=== PATIENT | male | born 1975 | race Two or more races ===

== ENCOUNTER 2016-12-13 17:10 | Emergency (ER) | payer BC ==
[2016-12-13] MEDS ORDERED: Albuterol 2.5 MG/3 ML NEB.SOL* (0.083%) INH ONE (19:07)
[2016-12-13] MEDS ORDERED: predniSONE TAB* 20 MG PO ONE (19:08)
[2016-12-13] MEDS ORDERED: Azithromycin TAB* 250 MG PO ONE (19:08)
--- NOTE | 2016-12-13 19:36 | RAD ---
HISTORY: Cough, wheezing COMPARISONS: None VIEWS: 2: Frontal dual-energy and lateral views of the chest. FINDINGS: CARDIOMEDIASTINAL SILHOUETTE: The cardiomediastinal silhouette is normal. CORNEL: The cornel are normal. PLEURA: The costophrenic angles are sharp. No pleural abnormalities are noted. LUNG PARENCHYMA: The lungs are clear. ABDOMEN: The upper abdomen is clear. There is no subphrenic gas. BONES AND SOFT TISSUES: No bone or soft tissue abnormalities are noted. OTHER: None. IMPRESSION: NO ACTIVE CARDIOPULMONARY DISEASE.
[2016-12-13 20:04] VITALS: BP 120/86
--- NOTE | 2016-12-14 00:59 | UC ---
madison Judd Timothy, scribed for Letty Chandler MD on 12/13/16 at 1912 . Shortness of Breath HPI - HPI Summary HPI Summary: Humberto Nguyen is a 41 yo male presenting to [facility] with nasal congestion, itchy eyes with yellow discharge, and increased difficulty breathing since 12/12/16 pm. He states it feels like he has to catch his breath after talking for a few minutes. He states he also has a non-productive cough with metallic taste. He is not in any current pain. His MHx includes left radiofrequency ablation 10/01, right 10/29 for lumbar spine pain, seasonal allergies, and he is a pain clinic Pt. - History of Current Complaint Chief Complaint: UCGeneralIllness Stated Complaint: DIFFICULTY BREATHING Time Seen by Provider: 12/13/16 19:03 Hx Obtained From: Patient Onset/Duration: Sudden Onset, Lasting Hours, Still Present Timing: Constant Current Severity: Moderate Dyspnea At: Exertion Aggrevating Factors: Allergens Alleviating Factors: Nothing Associated Signs & Symptoms: Positive: Cough (Nonproductive), Nasal Congestion, Other - eye itchiness with yellow discharge - Allergy/Home Medications Allergies/Adverse Reactions: Allergies Allergy/AdvReac Type Severity Reaction Status Date / Time No Known Allergies Allergy Verified 12/13/16 19:04 PMH/Surg Hx/FS Hx/Imm Hx Previously Healthy: No - lumbar spine pain Endocrine History Of: Denies: Diabetes Cardiovascular History Of: Denies: Cardiac Disorders, Hypertension, Pacemaker/ICD Respiratory History Of: Denies: COPD, Asthma GI/ History Of: Denies: Renal Disease - Surgical History Surgical History: Yes Surgery Procedure, Year, and Place: LEFT KNEE ACL RECON - Family History Known Family History: Positive: Other - asthma - Social History Lives: With Family Alcohol Use: None Substance Use Type: None Smoking Status (MU): Never Smoked Tobacco Have You Smoked in the Last Year: No Review of Systems Constitutional: Negative Skin: Negative Eyes: Drainage - yellow, Other - eye itchiness ENT: Nasal Discharge Respiratory: Shortness Of Breath, Cough Cardiovascular: Negative Gastrointestinal: Negative Genitourinary: Negative Motor: Negative Neurovascular: Negative Musculoskeletal: Negative Neurological: Negative Psychological: Negative All Other Systems Reviewed And Are Negative: Yes Physical Exam Triage Information Reviewed: Yes Appearance: No Pain Distress, Well-Nourished, Ill-Appearing Vital Signs: Initial Vital Signs Temp 97.8 F 12/13/16 18:58 Pulse 71 12/13/16 18:58 Resp 16 12/13/16 18:58 BP 145/101 12/13/16 18:58 Pulse Ox 100 12/13/16 18:58 elevated BP noted Vital Signs Reviewed: Yes Eyes: Positive: Conjunctiva Clear, Discharge - yellow ENT: Positive: Hearing grossly normal. Negative: Muffled/hoarse voice Neck: Positive: Supple, Nontender Respiratory: Positive: No respiratory distress, No accessory muscle use, Wheezing - bilat exp Cardiovascular: Positive: RRR, No Murmur, Pulses Normal, Brisk Capillary Refill Musculoskeletal: Positive: Strength Intact, ROM Intact Neurological: Positive: Alert, Muscle Tone Normal Psychological Exam: Normal Psychological: Positive: Age Appropriate Behavior Skin Exam: Normal Skin: Negative: rashes Diagnostics - Radiology CXR Xray Interpretation: No Acute Changes - IMPRESSION: NO ACTIVE CARDIOPULMONARY DISEASE. Radiology Interpretation Completed By: Radiologist Re-Evaluation - Re-Evaluation First Eval Re-Evaluation Time: 20:02 Change: Improved Comment: Improved after neb and prednisone, no wheezes. Discussed imaging study results with Pt. Pt is agreeable to current course of Tx and will be discharged. Shortness of Breath Dx - Course Course Of Treatment: Humberto Nguyen is a 41 yo male presenting to [facility] with SOB, cough, yellow discharge from his eyes, wheezing, and nasal congestion since last night. His CXR suggested no active cardiopulmonary disease. In urgent care he receiveed prednisone, albuterol, and azithromycin to ameliorate his SOB. After clinical examination and review of his imaging studies, he will be discharged home with asthmatic bronchitis and appropriate instructions. - Differential Dx/Diagnosis Differential Diagnosis/HQI/PQRI: Asthma, Bronchitis, Pneumonia Provider Diagnoses: asthmatic bronchitis Discharge - Discharge Plan Condition: Stable Disposition: HOME Prescriptions: Albuterol HFA INHALER* [Ventolin HFA Inhaler*] 2 puff INH Q4H PRN #1 mdi PRN Reason: Cough Azithromycin TAB* [Zithromax TAB (Z-PROSPER) 250 mg #6 tabs] 250 mg PO DAILY #4 tab Tobramycin 0.3% OPHTH.JAVY* 2 drop BOTH EYES Q4H #1 btl predniSONE TAB* [Deltasone TAB*] 40 mg PO DAILY #10 tab Patient Education Materials: Bronchospasm (ED), Acute Bronchitis (ED) Referrals: Hernandez Garner MD [Primary Care Provider] - 2 Days Additional Instructions: Please follow up with your primary care physician regarding your visit to urgent care today. Return to urgent care or the emergency department with any new or recurring symptoms. The documentation as recorded by the madison walker Timothy accurately reflects the service I personally performed and the decisions made by , Letty Chandler MD.
== END 2016-12-13 20:16 | disposition home or self-care (01) ==
LOC: UCEAST 17:10
DX: J45.909 Unspecified asthma, uncomplicated (principal)
CPT/HCPCS: 71020; 99202; A9270-GY; G0463; J7512

== ENCOUNTER 2017-05-10 07:28 | Emergency (ER) | payer BC ==
[2017-05-10 07:47] VITALS: BP 118/74
--- NOTE | 2017-05-10 14:32 | UC ---
Atilio Judd Angela, scribed for Vidya Rasmussen MD on 05/10/17 at 0829 . General HPI - HPI Summary HPI Summary: This pt is a 42 y/o male presenting to [facility] c/o sore throat upon waking up today. He additionally reports a headache. Pt's tested positive for strep throat 2 days ago. No rash, no cough / sob / cp. + tired. Pt works as an erp implementation consultant. - History of Current Complaint Chief Complaint: UCGeneralIllness Stated Complaint: SORE THROAT Time Seen by Provider: 05/10/17 07:58 Hx Obtained From: Patient Onset/Duration: Lasting Hours Associated Signs & Symptoms: Positive: Headache. Negative: Cough, Fever - Allergy/Home Medications Allergies/Adverse Reactions: Allergies Allergy/AdvReac Type Severity Reaction Status Date / Time No Known Allergies Allergy Verified 05/10/17 07:47 PMH/Surg Hx/FS Hx/Imm Hx Previously Healthy: Yes Other Endocrine History: DENIES: diabetes Other Cardiovascular History: DENIES: HTN - Surgical History Surgical History: Yes Surgery Procedure, Year, and Place: LEFT KNEE ACL RECON - Family History Known Family History: Positive: Other - asthma - Social History Occupation: Employed Full-time - erp implementation consultant. Alcohol Use: None Substance Use Type: None Smoking Status (MU): Former Smoker Have You Smoked in the Last Year: No Review of Systems Constitutional: Negative Skin: Negative Eyes: Negative ENT: Sore Throat Motor: Negative Neurovascular: Negative Neurological: Headache Is Patient Immunocompromised?: No All Other Systems Reviewed And Are Negative: Yes Physical Exam Triage Information Reviewed: Yes Appearance: Well-Nourished - looks tired but NAD. Vital Signs: Initial Vital Signs Temp 97.5 F 05/10/17 07:43 Pulse 59 05/10/17 07:43 Resp 16 05/10/17 07:43 BP 118/74 05/10/17 07:43 Pulse Ox 100 05/10/17 07:43 Vital Signs Reviewed: Yes Eye Exam: Normal ENT: Positive: TMs normal - a little rtx'd but ok, Other: - posterior pharynx is erythematous. Uvula is a little edematous. Uvula is midline. Airway is clear. No sores are appreciated. Neck: Positive: Supple, Nontender, Other: - Right adenopathy Respiratory Exam: Normal Respiratory: Positive: Chest non-tender, Lungs clear, Normal breath sounds, No respiratory distress Cardiovascular Exam: Normal Cardiovascular: Positive: RRR, No Murmur, Pulses Normal, Brisk Capillary Refill , Other: - heart rate correlates with right radial pulse Abdominal Exam: Normal Abdomen Description: Positive: Nontender, No Organomegaly, Soft Bowel Sounds: Positive: Present Musculoskeletal Exam: Normal Musculoskeletal: Positive: Strength Intact Neurological Exam: Normal - nonfocal, grossly intact Psychological Exam: Normal - conversing easily and appropriately Skin Exam: Normal - no visible or reported rash Course/Dx - Course Course Of Treatment: No new problems in CCC. Reviewed Strep precautions. Rx - augmentin. F/u PCP per routine. Seek medical care for worse or new problems. - Differential Dx - Multi-Symptom Provider Diagnoses: strep pharyngitis Discharge - Discharge Plan Condition: Stable Disposition: HOME Prescriptions: Amoxicillin/Clavulanate TAB* [Augmentin TAB 875*] 875 mg PO BID #20 tab Patient Education Materials: Strep Throat (ED) Forms: *Work Release Referrals: Hernandez Garner MD [Primary Care Provider] - The documentation as recorded by the Atilio walker Angela accurately reflects the service I personally performed and the decisions made by me, Vidya Rasmussen MD.
== END 2017-05-10 08:50 | disposition home or self-care (01) ==
LOC: UCEAST 07:28
DX: J02.0 Streptococcal pharyngitis (principal); Z87.891 Personal history of nicotine dependence
CPT/HCPCS: 87651; 99212; G0463

== ENCOUNTER 2017-06-06 07:34 | Emergency (ER) | payer BC ==
[2017-06-06 07:50] VITALS: BP 112/73
--- NOTE | 2017-06-06 08:31 | UC ---
Throat Pain/Nasal Chase HPI - HPI Summary HPI Summary: Patient presents with an unremarkable history. He presents with complaints of one day onset sore throat. He states he felt find yesterday, and woke up with throat pain. He denies fever, chills, nausea, vomiting or diarrhea, recent travel or know ill contacts. He is able to speak clearly and handle his own secretions. Denies any chest pain, cough, or dyspnea. - History of Current Complaint Chief Complaint: UCGeneralIllness Stated Complaint: SORE THROAT Time Seen by Provider: 06/06/17 07:51 Hx Obtained From: Patient Onset/Duration: Sudden Onset, Lasting Hours Severity: Moderate Cough: None Associated Signs & Symptoms: Positive: Negative - Epiglottits Risk Factors Epiglottis Risk Factors: Negative - Allergies/Home Medications Allergies/Adverse Reactions: Allergies Allergy/AdvReac Type Severity Reaction Status Date / Time No Known Allergies Allergy Verified 06/06/17 07:47 PMH/Surg Hx/FS Hx/Imm Hx Previously Healthy: Yes - Surgical History Surgical History: Yes Surgery Procedure, Year, and Place: LEFT KNEE ACL RECON - Family History Known Family History: Positive: Other - asthm - Social History Occupation: Employed Part-time Lives: With Family Alcohol Use: None Substance Use Type: None Smoking Status (MU): Former Smoker Have You Smoked in the Last Year: No Review of Systems Constitutional: Other - body aches Skin: Negative Eyes: Negative ENT: Sore Throat Respiratory: Negative Cardiovascular: Negative Gastrointestinal: Negative Genitourinary: Negative Motor: Negative Neurovascular: Negative Musculoskeletal: Negative Neurological: Negative Psychological: Negative All Other Systems Reviewed And Are Negative: Yes Physical Exam Triage Information Reviewed: Yes Appearance: Well-Appearing Vital Signs: Initial Vital Signs Temp 98.1 F 06/06/17 07:48 Pulse 86 06/06/17 07:48 Resp 16 06/06/17 07:48 BP 112/73 06/06/17 07:48 Pulse Ox 99 06/06/17 07:48 Vital Signs Reviewed: Yes Eye Exam: Normal ENT: Positive: Pharyngeal erythema Dental Exam: Normal Neck exam: Normal Neck: Positive: 1 Respiratory Exam: Normal Cardiovascular Exam: Normal Abdominal Exam: Normal Musculoskeletal Exam: Normal Neurological Exam: Normal Psychological Exam: Normal Skin Exam: Normal Throat Pain/Nasal Course/Dx - Course Course Of Treatment: Patient presents with one day onset throat pain, rapid strep was negative. He was hemodynamically stable, normal vital signs, and afebrile. He was RX penvk 500 mg po qid x 10 days, out of work today and may return tomorrow. - Differential Dx/Diagnosis Differential Diagnosis/HQI/PQRI: Other - strep throat Provider Diagnoses: strep throat Discharge - Discharge Plan Condition: Stable Disposition: HOME Prescriptions: Penicillin VK TAB* [Penicillin VK 250 mg Tab*] 500 mg PO QID #40 tab Patient Education Materials: Strep Throat (ED) Forms: *Work Release Referrals: Hernandez Garner MD [Primary Care Provider] -
== END 2017-06-06 08:40 | disposition home or self-care (01) ==
LOC: UCEAST 07:34
DX: J02.0 Streptococcal pharyngitis (principal); Z87.891 Personal history of nicotine dependence
CPT/HCPCS: 87651; 99212; G0463

== ENCOUNTER 2017-06-30 17:43 | Emergency (ER) | payer BC ==
[2017-06-30 18:00] VITALS: BP 136/80
--- NOTE | 2017-06-30 19:12 | UC ---
Throat Pain/Nasal Chase HPI - HPI Summary HPI Summary: Patient presents with complaints of sore throat for the third time. He states he as been seen two times prior with same complaints and has been treated with Amoxicillin, and then Augmentin. He states that he feels better when he is taking the medication, but as soon as he completes it the symptoms come back. He complains of painful red sore throat. He is able to eat, drink, speak, and handle his own secretions. He denies fever, chills, chest pain, abdominal pain, nausea, vomiting or diarrhea. - History of Current Complaint Chief Complaint: UCGeneralIllness Stated Complaint: THROAT PAIN Time Seen by Provider: 06/30/17 18:43 Hx Obtained From: Patient Onset/Duration: Gradual Onset, Lasting Days Severity: Moderate Pain Intensity: 7 Pain Scale Used: 0-10 Numeric Cough: None Associated Signs & Symptoms: Positive: Negative - Allergies/Home Medications Allergies/Adverse Reactions: Allergies Allergy/AdvReac Type Severity Reaction Status Date / Time No Known Allergies Allergy Verified 06/06/17 07:47 Home Medications: Home Medications Ibuprofen [Ibuprofen 200 MG] 400 mg PO 06/30/17 [History] PMH/Surg Hx/FS Hx/Imm Hx Previously Healthy: Yes - Surgical History Surgical History: Yes Surgery Procedure, Year, and Place: LEFT KNEE ACL RECON - Family History Known Family History: Positive: Other - asthm - Social History Alcohol Use: None Substance Use Type: None Smoking Status (MU): Former Smoker Have You Smoked in the Last Year: No Review of Systems Constitutional: Negative Skin: Negative Eyes: Negative ENT: Sore Throat Respiratory: Negative Cardiovascular: Negative Gastrointestinal: Negative Genitourinary: Negative Motor: Negative Neurovascular: Negative Musculoskeletal: Negative Neurological: Negative Psychological: Negative All Other Systems Reviewed And Are Negative: Yes Physical Exam Triage Information Reviewed: Yes Appearance: Well-Appearing Vital Signs: Initial Vital Signs Temp 97.9 F 06/30/17 17:55 Pulse 72 06/30/17 17:55 Resp 18 06/30/17 17:55 BP 136/80 06/30/17 17:55 Pulse Ox 99 06/30/17 17:55 Eye Exam: Normal Eyes: Positive: Conjunctiva Clear ENT: Positive: Pharyngeal erythema Dental Exam: Normal Neck exam: Normal Neck: Positive: 1 Respiratory Exam: Normal Respiratory: Positive: Chest non-tender, Lungs clear, Normal breath sounds, No respiratory distress, No accessory muscle use Cardiovascular Exam: Normal Cardiovascular: Positive: No Murmur, Pulses Normal Abdominal Exam: Normal Bowel Sounds: Positive: Present Musculoskeletal Exam: Normal Skin Exam: Normal Throat Pain/Nasal Course/Dx - Course Course Of Treatment: Patient presents with recurrent sore throat. Throat cultures were obtained to perhaps isolate the organism. He will in the interim be treated with Biaxin 500 mg by mouth twice daily for 10 days. He was discharged home in stable condition, with normal vital signs and afebrile. He was told to follow up with his PCP if his symtpoms do not resolve. - Differential Dx/Diagnosis Differential Diagnosis/HQI/PQRI: Pharyngitis Provider Diagnoses: pharyngitis Discharge - Discharge Plan Condition: Stable Disposition: HOME Prescriptions: Clarithromycin TAB* [Biaxin 500 MG TAB*] 500 mg PO BID #20 tab Patient Education Materials: Pharyngitis (ED) Referrals: Hernandez Garner MD [Primary Care Provider] -
--- NOTE | 2017-07-02 12:55 | UC ---
Progress - Progress Note Progress Note: (+) gas -- Finish biaxin
== END 2017-06-30 19:00 | disposition home or self-care (01) ==
LOC: UCEAST 17:43
DX: J02.9 Acute pharyngitis, unspecified (principal); Z87.891 Personal history of nicotine dependence
CPT/HCPCS: 87070; 87077; 99212; G0463

== ENCOUNTER 2018-05-16 18:46 | Emergency (ER) | payer BC ==
[2018-05-16 18:59] VITALS: BP 129/85
--- NOTE | 2018-05-16 19:01 | UC ---
Abdominal Pain Male HPI - HPI Summary HPI Summary: pt states tuesday evening he began to have stomach cramps and abd pain. pt has returned from [place] 04/22, 3 weeks ago. - History of Current Complaint Chief Complaint: UCAbdominalPain Stated Complaint: ABDOMINAL PAIN Time Seen by Provider: 05/16/18 19:01 Pain Intensity: 9 - Allergies/Home Medications Allergies/Adverse Reactions: Allergies Allergy/AdvReac Type Severity Reaction Status Date / Time No Known Allergies Allergy Verified 05/16/18 18:59 PMH/Surg Hx/FS Hx/Imm Hx - Surgical History Surgical History: Yes Surgery Procedure, Year, and Place: LEFT KNEE ACL RECON - Family History Known Family History: Positive: Other - asthm - Social History Alcohol Use: None Substance Use Type: None Smoking Status (MU): Former Smoker Have You Smoked in the Last Year: No Physical Exam Vital Signs: Initial Vital Signs Temp 98.0 F 05/16/18 18:55 Pulse 70 05/16/18 18:55 Resp 18 05/16/18 18:55 BP 129/85 05/16/18 18:55 Pulse Ox 97 05/16/18 18:55 Discharge - Sign-Out/Discharge Documenting (check all that apply): Patient Departure All imaging exams completed and their final reports reviewed: No Studies - Discharge Plan Condition: Stable Disposition: HOME Referrals: Hernandez Garner MD [Primary Care Provider] - - Billing Disposition and Condition Condition: STABLE Disposition: Home
[2018-05-16] MEDS ORDERED: Famotidine IV* 10 MG/ML 2 ML (20 mg) IV SLOW PU ONE (19:13)
[2018-05-16] MEDS ORDERED: Ondansetron INJ* 2 MG/ML VIAL IV ONE (19:13)
[2018-05-16] MEDS ORDERED: NS 0.9% 1000 ML* 1,000 ML BOLUS ONE (19:13)
--- NOTE | 2018-05-16 20:16 | UC ---
Abdominal Pain Male HPI - HPI Summary HPI Summary: The patient is a 43-year-old male with the onset of abdominal pain yesterday morning. The pain is diffuse. Is nonradiating. Attempts to eat he has severe epigastric pain. The pain doubles him over and he has to lie down during these episodes. Has had no fever or chills's. He is anorexic. He has been able to take clear liquids. His pain is worse with movement. He has To walk hunched over. He has had no problems urinating. Yesterday he had 8 episodes of diarrhea. Today he has had 3 episodes of diarrhea. He recently spent a month in [facility]. He returned to the [facility] about 3 weeks ago. He thinks he is last 2- 3 pounds since the onset of his symptoms. He has a remote history of hepatitis, possibly hepatitis B he is not sure. He has a history of typhoid fever. - History of Current Complaint Chief Complaint: UCAbdominalPain Stated Complaint: ABDOMINAL PAIN Time Seen by Provider: 05/16/18 19:01 Hx Obtained From: Patient Onset/Duration: Gradual Onset, Lasting Days Timing: Constant Severity Initially: Severe Severity Currently: Severe Pain Intensity: 9 Pain Scale Used: 0-10 Numeric Location: Diffuse Radiates: No Character: Colicy, Cramping, Sharp Aggravating Factor(s): Food, Movement Alleviating Factor(s): Nothing Associated Signs And Symptoms: Positive: Diarrhea - Allergies/Home Medications Allergies/Adverse Reactions: Allergies Allergy/AdvReac Type Severity Reaction Status Date / Time No Known Allergies Allergy Verified 05/16/18 18:59 PMH/Surg Hx/FS Hx/Imm Hx Previously Healthy: Yes Other History Of: Hepatitis B - ? - Surgical History Surgical History: Yes Surgery Procedure, Year, and Place: LEFT KNEE ACL RECON - Family History Known Family History: Positive: Other - asthm - Social History Alcohol Use: None Substance Use Type: None Smoking Status (MU): Former Smoker Have You Smoked in the Last Year: No Review of Systems Constitutional: Negative Skin: Negative Eyes: Negative ENT: Negative Respiratory: Negative Cardiovascular: Negative Gastrointestinal: Abdominal Pain, Diarrhea, Nausea Genitourinary: Negative Motor: Negative Neurovascular: Negative Musculoskeletal: Negative Neurological: Negative Psychological: Negative Is Patient Immunocompromised?: No All Other Systems Reviewed And Are Negative: Yes Physical Exam Triage Information Reviewed: Yes Appearance: Well-Nourished, Ill-Appearing Vital Signs: Initial Vital Signs Temp 98.0 F 05/16/18 18:55 Pulse 70 05/16/18 18:55 Resp 18 05/16/18 18:55 BP 129/85 05/16/18 18:55 Pulse Ox 97 05/16/18 18:55 Vital Signs Reviewed: Yes Eyes: Positive: Conjunctiva Clear ENT: Positive: Hearing grossly normal. Negative: Nasal congestion, Nasal drainage, Trismus, Muffled voice, Hoarse voice Neck: Positive: Supple, Nontender, No Lymphadenopathy Respiratory: Positive: Lungs clear, Normal breath sounds, No respiratory distress Cardiovascular: Positive: RRR, No Murmur Abdomen Description: Positive: Soft, McBur[place]'s Point Tenderness. Negative: Nontender - diffusely tender, CVA Tenderness (R), CVA Tenderness (L), Distended , Guarding, Peritoneal Signs, Pulsatile Mass, Splenomegaly Bowel Sounds: Positive: Present Musculoskeletal: Positive: ROM Intact, No Edema Neurological: Positive: Alert, Muscle Tone Normal Psychological Exam: Normal Skin Exam: Normal Diagnostics - Laboratory Diagnostic Studies Completed/Ordered: UA normal Re-Evaluation - Re-Evaluation First Eval Re-Evaluation Time: 20:30 Change: Unchanged Abd Pain Male Course/Dx - Course Course Of Treatment: he did not improve with one liter of NS, zofran and pepcid - Differential Dx/Clinical Impression Provider Diagnoses: abdominal pain of uncertain cause Discharge - Sign-Out/Discharge Documenting (check all that apply): Patient Departure All imaging exams completed and their final reports reviewed: No Studies - Discharge Plan Condition: Stable Disposition: TRANS HIGHER LVL OF CARE FAC Referrals: Hernandez Garner MD [Primary Care Provider] - Additional Instructions: I suggest you go directly to the ER for evaluation of your abd pain - Billing Disposition and Condition Condition: STABLE Disposition: Trans Higher Lvl of Care Fac
[2018-05-16] MEDS ORDERED: Morphine INJ* 2 MG/ML 1 ML SYRINGE (TWO MG - NEW SYRINGE VERSION) IV PRN (20:22)
[2018-05-16] MEDS ORDERED: Morphine INJ* 2 MG/ML 1 ML CARPUJECT ONE (20:32)
== END 2018-05-16 20:50 | disposition short-term general hospital (02) ==
LOC: UCEAST 18:46
DX: R10.13 Epigastric pain (principal); R19.7 Diarrhea, unspecified; R11.0 Nausea; Z87.891 Personal history of nicotine dependence
CPT/HCPCS: 81003; 96360; 96374; 96375; 99212; G0463; J2270; J2405

== ENCOUNTER 2018-05-16 21:16 | Emergency (ER) | payer BC ==
[2018-05-16] MEDS ORDERED: NS 0.9% 1000 ML* 1,000 ML IV ONE (21:49)
[2018-05-16] MEDS ORDERED: DICYCLOMINE HCL* 20 MG/2 ML VIAL IM ONE (21:49)
--- NOTE | 2018-05-16 22:00 | ED ---
Abdominal Pain/Male - HPI Summary HPI Summary: This patient is a 43 year old M presenting to [facility] accompanied by his with a chief complaint of abd pain since 05/14/18. He notes sx much more severe s /p eating (has only eaten 2 pieces of bread in past 2 days), and when he does eat, he immediately experiences watery diarrhea. He denies fever. He notes recent travel to [place], returning 04/22/18. He also stated that he has been experiencing nausea for the past week s/p eating, but nowhere near the sx severity he is experiencing now. He denies abd SHx. Rx tramadol for PMHx back problems. - History of Current Complaint Chief Complaint: EDAbdPain Stated Complaint: ABD PAIN/NAUSEA/DIARREA Time Seen by Provider: 05/16/18 21:40 Hx Obtained From: Patient Onset/Duration: Gradual Onset, Lasting Weeks Timing: Constant Severity Initially: Moderate Severity Currently: Moderate Pain Intensity: 7 Pain Scale Used: 0-10 Numeric Location: Diffuse, Discrete At: RLQ Radiates: No Aggravating Factor(s): Food Alleviating Factor(s): Nothing Associated Signs And Symptoms: Positive: Decreased Appetite, Nausea, Diarrhea. Negative: Fever - Allergies/Home Medications Allergies/Adverse Reactions: Allergies Allergy/AdvReac Type Severity Reaction Status Date / Time No Known Allergies Allergy Verified 05/16/18 21:50 PMH/Surg Hx/FS Hx/Imm Hx Endocrine/Hematology History: Denies: Hx Diabetes, Hx Thyroid Disease Cardiovascular History: Denies: Hx Hypertension, Hx Pacemaker/ICD Respiratory History: Denies: Hx Asthma, Hx Chronic Obstructive Pulmonary Disease (COPD) GI History: Denies: Hx Ulcer History: Denies: Hx Dialysis, Hx Renal Disease Musculoskeletal History: Reports: Hx Back Problems Sensory History: Denies: Hx Legally Blind, Hx Deafness, Hx Hearing Aid Opthamlomology History: Denies: Hx Legally Blind EENT History: Denies: Hx Deafness Neurological History: Reports: Other Neuro Impairments/Disorders - PAIN CLINIC PATIENT Psychiatric History: Denies: Hx Panic Disorder - Surgical History Surgery Procedure, Year, and Place: LEFT KNEE ACL RECON Infectious Disease History: No Infectious Disease History: Reports: Traveled Outside the [place] in Last 30 Days - [place] Denies: Hx Clostridium Difficile, Hx Hepatitis, Hx Human Immunodeficiency Virus (HIV), Hx of Known/Suspected MRSA, Hx Shingles, Hx Tuberculosis, Hx Known/ Suspected VRE, Hx Known/Suspected VRSA, History Other Infectious Disease - Family History Known Family History: Positive: Respiratory Disease - asthma - Social History Lives: With Family Alcohol Use: None Substance Use Type: Reports: None Hx Tobacco Use: No Smoking Status (MU): Former Smoker Have You Smoked in the Last Year: No Review of Systems Negative: Fever Positive: Abdominal Pain, Diarrhea, Nausea Positive: no symptoms reported All Other Systems Reviewed And Are Negative: Yes Physical Exam - Summary Physical Exam Summary: VITAL SIGNS: Reviewed. GENERAL: Patient is a well-developed and nourished male who is lying comfortable in the stretcher. Patient is not in any acute respiratory distress. HEAD AND FACE: No signs of trauma. No ecchymosis, hematomas or skull depressions. No sinus tenderness. EYES: PERRLA, EOMI x 2, No injected conjunctiva, no nystagmus. EARS: Hearing grossly intact. Ear canals and tympanic membranes are within normal limits. MOUTH: Oropharynx within normal limits. NECK: Supple, trachea is midline, no adenopathy, no JVD, no carotid bruit, no c- spine tenderness, neck with full ROM. CHEST: Symmetric, no tenderness at palpation LUNGS: Clear to auscultation bilaterally. No wheezing or crackles. CVS: Regular rate and rhythm, S1 and S2 present, no murmurs or gallops appreciated. ABDOMEN: Soft, diffuse tenderness of abd, more over RLQ. No signs of distention. No rebound no guarding, and no masses palpated. Bowel sounds are normal. EXTREMITIES: FROM in all major joints, no edema, no cyanosis or clubbing. NEURO: Alert and oriented x 3. No acute neurological deficits. Speech is normal and follows commands. SKIN: Dry and warm Triage Information Reviewed: Yes Vital Signs On Initial Exam: Initial Vitals Temp Pulse Resp BP Pulse Ox 97.1 F 51 16 140/91 98 05/16/18 21:19 05/16/18 21:19 05/16/18 21:19 05/16/18 21:19 05/16/18 21:19 Vital Signs Reviewed: Yes Diagnostics - Vital Signs Vital Signs Temp Pulse Resp BP Pulse Ox 05/16/18 21:44 48 100 05/16/18 21:19 97.1 F 51 16 140/91 98 - Laboratory Result Diagrams: 05/16/18 22:36 05/16/18 22:36 Lab Statement: Any lab studies that have been ordered have been reviewed, and results considered in the medical decision making process. - CT A/P CT Interpretation: Positive (See Comments) CT Interpretation Completed By: Radiologist - Thickened loops of jejunum and ileum with associated mesenteric edema and a small moderate free fluid in the abdomen or pelvis, indicating a small bowel disorder. Differential diagnostic considerations include a small bowel enteritis, MEET inhibitor angioedema, and small bowel vasculitis. Dr. Li has reviewed this report. Re-Evaluation - Re-Evaluation First Eval Re-Evaluation Time: 01:40 Change: Unchanged Comment: Pt had no diarrhea in the ED, reviewed CT results with him. Abdominal Pain Fem Course/Dx - Course Course Of Treatment: A 43-year-old M presents to the ED with a CC of diffuse abd pain for 2 days. (+) nausea, watery diarrhea. (-) fever. pain and diarrhea greatly aggravated by eating, has only eaten 2 slices of bread in past 2 day. He notes that he was experiencing nausea s/p eating starting a week ago, but the pain and diarrhea did not start until [address] A/P reveals thickened loops of jejunum and ileum with associated mesenteric edema and a small moderate free fluid in the abdomen or pelvis, indicating a small bowel disorder. Differential diagnostic considerations include a small bowel enteritis, MEET inhibitor angioedema, and small bowel vasculitis. In the ED course, pt was given bentyl and nl saline. The pt had no diarrhea in the ED, most likely not gastroenteritis, will use Abx, steroids, and pain meds to treat. - Diagnoses Provider Diagnoses: Enteritis Discharge - Sign-Out/Discharge Documenting (check all that apply): Patient Departure - discharge - Discharge Plan Condition: Stable Disposition: HOME Prescriptions: Levofloxacin TAB* [Levaquin TAB*] 500 mg PO DAILY #7 tab metroNIDAZOLE [Flagyl 500 MG TAB] 500 mg PO TID #20 tab oxyCODONE/Acetamin 5/325 MG* [Percocet 5/325 TAB*] 1 tab PO Q6H PRN #14 tab MDD 4 PRN Reason: Pain predniSONE TAB* [Deltasone 20 MG TAB*] 40 mg PO DAILY #5 tab Patient Education Materials: Enteritis (ED) Referrals: Hernandez Garner MD [Primary Care Provider] - Lg Jose DO [Doctor of Osteopathy] - Additional Instructions: Return to the emergency department for any new or worsening symptoms. Follow up with your primary care physician, as well as with the provided extrusion operator in 1-2 days. - Attestation Statements Document Initiated by Scribe: Yes Documenting Scribe: Reji Stark Provider For Whom Scribe is Documenting (Include Credential): Dr. Lai Li MD Scribe Attestation: IReji, scribed for Dr. Lai Li MD on 05/17/18 at 0140.
[2018-05-16] MEDS ORDERED: Iohexol 300* (CONTRAST) 10 ML SDV IV ONE (22:02)
[2018-05-16 22:51] LABS: ABS Basophils 0 10^3/ul (0-0.2); ABS Eosinophils 0.2 10^3/ul (0-0.6); ABS Lymphocytes 1.7 10^3/ul (1.0-4.8); ABS Monocytes 0.6 10^3/ul (0-0.8); ABS Neutrophils 6.3 10^3/ul (1.5-7.7); ABS Nucleated RBC 0 10^3/ul; Eosinophil % 2.3 % (0-6); Hematocrit 42 % (42-52); Hemoglobin 13.7 g/dl (14.0-18.0); Lymphocyte % 19.4 % (25-47); Mean Corpuscular HGB Conc 33 g/dl (31-36); Mean Corpuscular Hemoglobin 25 pg (27-31); Mean Corpuscular Volume 77 fL (80-94); Mean Platelet Volume 7.9 um3 (7.4-10.4); Nucleated Red Blood Cells % 0.1; Platelet Count 168 10^3/ul (150-450); Red Blood Count 5.47 10^6/ul (4.00-5.40); Red Cell Distribution Width 14 % (10.5-15); White Blood Count 8.9 10^3/ul (3.5-10.8)
[2018-05-16 22:59] LABS: INR 1.06 (0.77-1.02)
[2018-05-16 23:09] LABS: EGFR Non-African American 98.4 (>60)
[2018-05-16] MEDS ORDERED: Ondansetron INJ* 2 MG/ML VIAL IV ONE (23:27)
[2018-05-16] MEDS ORDERED: fentaNYL* 50 MCG/ML 2 ML VIAL (100 MCG VIAL) IV SLOW PU ONE (23:27)
--- NOTE | 2018-05-17 00:45 | RAD ---
EXAM: CT Abdomen and Pelvis With Intravenous Contrast CLINICAL HISTORY: 43 years old, male; Abdominal pain; Generalized TECHNIQUE: Axial computed tomography images of the abdomen and pelvis with intravenous contrast. All CT scans at this facility use at least one of these dose optimization techniques: automated exposure control; mA and/or kV adjustment per patient size (includes targeted exams where dose is matched to clinical indication); or iterative reconstruction. Coronal and sagittal reformatted images were created and reviewed. CONTRAST: 98 mL of OMNI administered intravenously. COMPARISON: No relevant prior studies available. FINDINGS: Lung bases: The imaged lung bases are clear. Heart: No cardiomegaly or pericardial effusion is noted. ABDOMEN: Liver: The liver is unremarkable. No liver lesion is seen. The contour of the liver is smooth. No hepatomegaly is noted. Gallbladder and bile ducts: The gallbladder is distended. No calcifications are seen in the gallbladder to suggest calculi. No gallbladder wall thickening, pericholecystic fluid, or pericholecystic inflammatory changes is identified. No dilation of the intrahepatic or extrahepatic bile ducts is noted. Pancreas: Normal. The main pancreatic duct is normal in caliber. Spleen: Normal. No splenomegaly is noted. Adrenals: Normal. No mass. Kidneys and ureters: The kidneys are normal in appearance. No renal lesion is identified. No calculi are seen in the kidneys or ureters. There is no hydronephrosis or hydroureter. Stomach and bowel: There are thickened loops of jejunum and ileum with associated mesenteric edema and a small amount of mesenteric fluid. No dilated loops of bowel are noted to suggest a bowel obstruction. The colon is unremarkable. However, the distal transverse colon, descending colon, and rectosigmoid colon are decompressed, limiting their optimal evaluation. PELVIS: Appendix: Normal. There is no evidence for appendicitis. Bladder: The distended urinary bladder is normal in appearance. No stones or mass. Reproductive: The prostate gland and seminal vesicles are unremarkable. ABDOMEN and PELVIS: Intraperitoneal space: There is a small amount of water density free fluid in the abdomen and pelvis. There is no abscess or intraperitoneal free air. Bones/joints: The imaged bony structures are intact. There is no suspicious osteolytic or osteoblastic lesion. Incidental note is made of a small bone island in the right femoral head. There is a mild levoscoliosis of the lumbar spine. There are degenerative changes in the lumbar spine. Soft tissues: Unremarkable. There is no hernia. Vasculature: The abdominal aorta is normal in caliber. The renal arteries, celiac artery, superior mesenteric artery, and inferior mesenteric artery are patent. The portal veins, splenic vein, superior mesenteric vein, and inferior mesenteric vein are patent. Lymph nodes: No lymphadenopathy. IMPRESSION: Thickened loops of jejunum and ileum with associated mesenteric edema and a small moderate free fluid in the abdomen or pelvis, indicating a small bowel disorder. Differential diagnostic considerations include a small bowel enteritis, MEET inhibitor angioedema, and small bowel vasculitis. To contact [facility] with a general question: Operations Center - [phone] For direct physician to physician contact: Physician Hotline - [phone] [facility] ([facility] ID #[id number])
[2018-05-17] MEDS ORDERED: Levofloxacin TAB* 500 MG PO ONE (01:04)
[2018-05-17] MEDS ORDERED: metroNIDAZOLE TAB* 250 MG PO ONE (01:04)
[2018-05-17] MEDS ORDERED: Dexamethasone IV* 4 MG/ML 5 ML VIAL (20 MG) IVPB ONE (01:05)
[2018-05-17] MEDS ORDERED: Dexamethasone IV* 4 MG/ML 1 ML (4 MG) IV SLOW PU ONE (02:00)
[2018-05-17 02:11] VITALS: BP 120/84
== END 2018-05-17 02:10 | disposition home or self-care (01) ==
LOC: ED 21:16
DX: K52.9 Noninfective gastroenteritis and colitis, unspecified (principal); R10.9 Unspecified abdominal pain; Z87.891 Personal history of nicotine dependence; R19.7 Diarrhea, unspecified; R11.0 Nausea
CPT/HCPCS: 36415; 74177; 80053; 82150; 83605; 83690; 83735; 85025; 85610; 85730; 86140; 96372; 96374; 99284; A9270-GY; J0500; J1100; J2405; J3010; Q9967